=== PATIENT | female | born 2000 | race Caucasian/White ===

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

== ENCOUNTER 2021-08-29 08:33 | Day surgery (SDC) | payer BC ==
[2021-08-24 15:36] VITALS: BMI 18.8
--- NOTE | 2021-08-27 12:46 | P.HPOR ---
History of Present Illness H&P Date: 08/27/21 Chief Complaint: Left hand soft tissue mass Subjective: This is a 20 year old female that presents today for initial evaluation regarding a left hand dorsal soft tissue mass that has been present for 3-4 months that is causing daily pain and discomfort. She has a recent history of a left hand dorsal soft tissue mass excision performed by another surgeon in January of 2021 that was just located just radial to her current soft tissue mass, she is unsure as to whether this mass is recurrent or if this is a new mass that has formed. She also complaints of persistent paresthesias and numbness distal to her incision mainly overlying the dorsal aspects of the index and middle finger. She denies any recent injury and has no other complaints at this time. 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 Physical Examination: LUE: AIN/PIN/Radial/Ulnar/Median motor intact. Radial/Ulnar/Median SILT. 2+/4 Radial/Ulnar pulses palpated. Soft tissue mass prominent over base of middle finger metacarpal underlying middle finger EDC tendon. Transverse incision well healed over dorsum of hand. 2pt discrimination greater than 8mm distal to old incision overlying proximal aspect of index and middle finger. Wrist flexion extension 80/80 with pain over mass with maximal flexion. Imaging: X-Rays of the left hand demonstrate no acute osseus abnormality Impression: 1.) Left hand dorsal soft tissue mass. Plan: Diagnosis and treatment options were discussed with the patient. At this point she states the mass is causing her daily discomfort and pain and she is interested in having it removed. We discussed that her paresthesias distal to her incision may be permanent but she states her main complaint is the pain surrounding the mass. Risks of surgery including recurrence, bleeding, infection, damage to surrounding tissue and need for further surgery were discussed and she was understanding. I discussed that her previous incision will likely be extended and exploration of any nerve damage can be done at the time of surgery and that if there is any nerve amendable to repair it can be done at the time of surgery and she was agreeable with this. Preoperative labs are ordered and we will tentatively schedule the patient for left hand dorsal soft tissue mass excision with possible nerve repair. I anticipate 1-2 weeks off of work may be needed post operatively but if she desires to return to work sooner she may. -Uri Pink DO Orthopedic Hand/Upper Extremity Surgeon Past Medical History Past Medical History: Asthma History of Any Multi-Drug Resistant Organisms: None Reported Past Surgical History: No Surgical Hx Reported Additional Past Surgical History / Comment(s): Left hand surgery. Past Anesthesia/Blood Transfusion Reactions: Motion Sickness, Postoperative Nausea & Vomiting (PONV) Past Psychological History: ADD/ADHD, Anxiety Smoking Status: Never smoker Past Alcohol Use History: None Reported Past Drug Use History: None Reported - Past Family History Mother Family Medical History: Cancer Additional Family Medical History / Comment(s): Cervical cancer. Medications and Allergies Home Medications Medication Instructions Recorded Confirmed Type Biotin 10,000 mcg PO DAILY 08/24/21 08/24/21 History Control Pill (? Name) 1 tab PO QAM 08/24/21 08/24/21 History Loratadine 10 mg PO DAILY 08/24/21 08/24/21 History Multivitamins, Thera [Multivitamin 1 tab PO DAILY 08/24/21 08/24/21 History (formulary)] Allergies Allergy/AdvReac Type Severity Reaction Status Date / Time iodine Allergy Rash/Hives Verified 08/24/21 15:37 Physical Examination Osteopathic Statement: *. No significant issues noted on an osteopathic structural exam other than those noted in the History and Physical/Consult.
[~2021-08-29 08:33] MED LIST: HYDROmorphone 0.5 MG/0.5 ML SYRINGE IVP PRN; LACTATED RINGERS 1,000 ML IV SCH; LIDOCAINE 1% (10MG/ML) FOR IV START INTRADERMA PRN; ONDANSETRON 4 MG/2 ML VIAL IVP PRN
[2021-08-29] MEDS ORDERED: DEXAMETHASONE SOD PHOSPHATE 4 MG/ML 1 ML VIAL IVP ONE (09:33)
[2021-08-29] MEDS ORDERED: SCOPOLAMINE 1.5MG/72HR PATCH TRANSDERM ONE (09:39)
[2021-08-29] MEDS ORDERED: PROPOFOL 10 MG/ML 20 ML VIAL IV ONE (09:52)
[2021-08-29] MEDS ORDERED: ceFAZolin 1,000 MG VIAL ONE (09:52)
[2021-08-29] MEDS ORDERED: SODIUM CHLORIDE 0.9% 100 ML BAG ONE (09:52)
[2021-08-29] MEDS ORDERED: MIDAZOLAM 2 MG/2 ML VIAL ONE (09:52)
[2021-08-29] MEDS ORDERED: LIDOCAINE 1% INJ 10MG/ML (20 ML MDV) ONE (09:52)
[2021-08-29] MEDS ORDERED: fentaNYL (PF) 50 MCG/ML 2 ML AMP ONE (09:52)
[2021-08-29] MEDS ORDERED: diphenhydrAMINE 50 MG/ML 1 ML VIAL ONE (09:52)
[2021-08-29] MEDS ORDERED: BUPIVACAINE (PF) 0.25% 30 ML VIAL SQ ONE ×2 (10:00→10:33)
[2021-08-29 11:06] VITALS: TEMP 97.9
[2021-08-29] MEDS ORDERED: KETOROLAC 15 MG/ML 1 ML VIAL ONE (11:35)
[2021-08-29] MEDS ORDERED: KETOROLAC 15 MG/ML 1 ML VIAL IVP ONE (11:40)
[2021-08-29] MEDS ORDERED: HYDROmorphone 0.5 MG/0.5 ML SYRINGE IVP ONE (11:42)
[2021-08-29] MEDS ORDERED: LACTATED RINGERS 1,000 ML IV ONE (11:56)
--- NOTE | 2021-08-29 12:22 | P.OP ---
Date of Procedure: 08/29/21 Preoperative Diagnosis: Left hand dorsal soft tissue mass Postoperative Diagnosis: Same Procedure(s) Performed: Left hand dorsal mass excision, deep, sub-fascial 3.5cm Anesthesia: DHEERAJA Surgeon: Uri Pink Estimated Blood Loss (ml): 0 Pathology: other (Left wrist soft tissue mass, dorsal.) Condition: stable Disposition: PACU Operative Findings: This is a 21 year old female with a history of a painful dorsal hand/wrist mass that has failed conservative treatment. She presents today for left hand mass excision. Risks and benefits of surgery were discussed with the patient including bleeding, damage to surrounding tissue, infection, recurrence, need for further surgery as well as risks of anesthesia including pulmonary embolism and even and the patient wished to proceed with surgical intervention. The patient was seen in the pre-operative area by myself. Consent and H&P were completed and updated. The correct extremity was marked in the pre-operative area by myself and all other questions were answered. Operative Narrative: The patient was brought to the operating room by the department of anesthesia. They remained on the portable stretcher and a rolling hand table was brought to the side of the operative extremity. Pre-operative time out was performed indicating the correct patient, procedure and laterality. All in the room agreed. Pre-operative antibiotics were given prior to skin incision. The patient was then drifted off to sleep by the department of anesthesia. A nonsterile tourniquet was then applied to the operative extremity and the left upper extremity was then prepped and draped in normal sterile fashion. The operative extremity was elevated to gravity and the tourniquet was inflated to 250mmHg. A transverse incision was made centralized over the palpable soft tissue mass. Blunt dissection was taken through subcutaneous tissues taking care to protect dorsal sensory nerve branches . Dissection was carried deep to the extensor tenosynovium and the mass was then identified located deep to the 4th dorsal extensor compartment. The mass appeared to be a 3.5cm multilobulated and had a clear, gelatinous make up. Careful blunt dissection was taken to free the mass from surrounding deep tissue. The stalk of the mass was identified and it appeared to be communicating and originating from the ring finger CMC joint. The mass was sharply excised at its base and sent for pathology. Rongeur was used to remove the mass remnants from the stalk base and bipolar cautery was used at the origin of the mass. The wound was then irrigated. Skin closure was performed with 4-0 Monocryl suture followed by steri strips. A sterile dressing was then applied consisting of 4x4s, cast padding and elsa wrap. The tourniquet was let down and the hand had immediate normal perfusion. The patient was then woken by the department of anesthesia and transferred to PACU in stable condition. Uri Pink D.O. Orthopedic Hand/Upper Extremity Surgeon
[2021-08-29 13:13] VITALS: BP 108/65; PULSE 81; RESP 16
== END 2021-08-29 13:14 | disposition home or self-care (01) ==
LOC: OR 08:33
PROVIDERS: ATTEND Orthopaedic Surgery Hand Surgery
DX: M67.442 Ganglion, left hand (principal); J45.909 Unspecified asthma, uncomplicated; Z98.890 Other specified postprocedural states; F41.9 Anxiety disorder, unspecified; F90.9 Attention-deficit hyperactivity disorder, unspecified type; Z80.49 Family history of malignant neoplasm of other genital organs; Z79.3 Long term (current) use of hormonal contraceptives; Z79.899 Other long term (current) drug therapy; Z91.048 Other nonmedicinal substance allergy status
CPT/HCPCS: 81025; 88304; 26160; J2250; J1200; J1100; J2405; J0690; J2001; J3010; J1885; J2704; J1170; 88305

== ENCOUNTER 2021-12-13 10:12 | Emergency (ER) | payer BC, OTHER ==
[2021-12-13] MEDS ORDERED: ONDANSETRON 4 MG/2 ML VIAL IVP STA (11:00)
[2021-12-13] MEDS ORDERED: MORPHINE SULFATE 2 MG/ML SYRINGE IVP STA ×2 (11:00→14:00)
[2021-12-13] MEDS ORDERED: SODIUM CHLORIDE 0.9% 500 ML 500 ML IV ONE (11:00)
--- NOTE | 2021-12-13 11:05 | ED ---
General Adult HPI - General Chief complaint: Vaginal Bleeding Stated complaint: abd pain, vaginal bleeding Time Seen by Provider: 12/13/21 10:21 Source: patient Mode of arrival: ambulatory Limitations: no limitations - History of Present Illness Initial comments: 21 year-old female patient with history of endometriosis presents to the emergency department for evaluation of pelvic pain with abdominal bloating. She has also been having dark brown vaginal discharge. Symptoms started 4 days ago and have been worsening. Reports lower abdominal cramping with radiation through to her back. She has been on control for the last 6 months, last 4 perio ds have been regular. LMP was 11/21/21. She has had some constipation. Denies any hematuria, dysuria, urinary frequency, urinary urgency. Denies any fever or chills. Has not taken any tests. Denies concerns for sexually transmitted infections. She was advised to come in by her AUTHOR'S AGENT Dr. Lucas after a phone consultation. - Related Data Home Medications Medication Instructions Recorded Confirmed Loratadine 10 mg PO DAILY 08/24/21 12/13/21 Multivitamins, Thera [Multivitamin 1 tab PO DAILY 08/24/21 12/13/21 (formulary)] Minocycline [Minocin] 50 mg PO DAILY 12/13/21 12/13/21 Norgestimate-Ethinyl Estradiol 1 tab PO DAILY 12/13/21 12/13/21 [Sfb-Mi-[id number] Tablet] Allergies Allergy/AdvReac Type Severity Reaction Status Date / Time iodine Allergy Rash/Hives Verified 12/13/21 10:53 Review of Systems ROS Statement: Those systems with pertinent positive or pertinent negative responses have been documented in the HPI. ROS Other: All systems not noted in ROS Statement are negative. Past Medical History Past Medical History: Asthma Additional Past Medical History / Comment(s): endometriosis, ovarian cysts. History of Any Multi-Drug Resistant Organisms: None Reported Past Surgical History: No Surgical Hx Reported Additional Past Surgical History / Comment(s): Left hand surgery. Past Anesthesia/Blood Transfusion Reactions: Motion Sickness, Postoperative N ausea & Vomiting (PONV) Past Psychological History: ADD/ADHD, Anxiety Smoking Status: Never smoker Past Alcohol Use History: None Reported Past Drug Use History: None Reported - Past Family History Mother Family Medical History: Cancer Additional Family Medical History / Comment(s): Cervical cancer. General Exam Limitations: no limitations General appearance: alert, in no apparent distress, other (This is a well- developed, well-nourished adult female in no acute distress.) ENT exam: Present: normal exam, normal oropharynx, mucous membranes moist Respiratory exam: Present: normal lung sounds bilaterally. Absent: respiratory distress, wheezes, rales, rhonchi, stridor Cardiovascular Exam: Present: regular rate, normal rhythm, normal heart sounds. Absent: systolic murmur, diastolic murmur, rubs, gallop, clicks GI/Abdominal exam: Present: soft, tenderness (Lower abdominal), normal bowel sounds. Absent: distended, guarding, rebound, rigid Neurological exam: Present: alert, oriented X3, CN II-XII intact Psychiatric exam: Present: normal affect, normal mood Skin exam: Present: warm, dry, intact, normal color. Absent: rash Course Vital Signs 12/13/21 12/13/21 12/13/21 10:14 11:50 14:36 Temperature 98.4 F 98.2 F Pulse Rate 111 H 104 H 78 Respiratory 18 18 16 Rate Blood Pressure 142/78 110/79 128/70 O2 Sat by Pulse 100 100 98 Oximetry Medical Decision Making - Medical Decision Making 21-year-old female patient presented to the emergency department today for evaluation of pelvic pain for the last several days. Physical examination did r eveal tenderness over the lower abdomen. Labs reviewed and are unremarkable. She is not . Pelvic ultrasound was obtained and did show good arterial flow to the left ovary but no certain venous flow. I did discuss this finding with Dr. Lucas who reports low risk for torsion due to no presence of a causative lesion such as cyst. KUB was obtained and showed nonspecific abdomen no review the images does reveal some fecal retention in the rectum. She'll be given a bottle of magnesium citrate. She'll be discharged follow up with her [employer]S AGENT and her primary care physician for recheck in 1-2 days. Return parameters were discussed in detail. She verbalizes understanding and agrees with this plan. My attending is Dr. Brown. - Lab Data Result diagrams: 12/13/21 11:50 12/13/21 11:50 Lab Results 12/13/21 12/13/21 12/13/21 Range/Units 10:54 10:54 11:50 WBC 3.9 (3.8-10.6) k/uL RBC 4.24 (3.80-5.40) m/uL Hgb 13.5 (11.4-16.0) gm/dL Hct 39.0 (34.0-46.0) % MCV 92.0 (80.0-100.0) fL MCH 31.9 (25.0-35.0) pg MCHC 34.7 (31.0-37.0) g/dL RDW 12.8 (11.5-15.5) % Plt Count 176 (150-450) k/uL MPV 7.7 Neutrophils % 57 % Lymphocytes % 33 % Monocytes % 6 % Eosinophils % 2 % Basophils % 0 % Neutrophils # 2.2 (1.3-7.7) k/uL Lymphocytes # 1.3 (1.0-4.8) k/uL Monocytes # 0.2 (0-1.0) k/uL Eosinophils # 0.1 (0-0.7) k/uL Basophils # 0.0 (0-0.2) k/uL Sodium (137-145) mmol/L Potassium (3.5-5.1) mmol/L Chloride (98-107) mmol/L Carbon Dioxide (22-30) mmol/L Anion Gap mmol/L BUN (7-17) mg/dL Creatinine (0.52-1.04) mg/dL Est GFR (CKD-EPI)AfAm (>60 ml/min/1.73 sqM) Est GFR (CKD-EPI)NonAf (>60 ml/min/1.73 sqM) Glucose (74-99) mg/dL Plasma Lactic Acid Marciano (0.7-2.0) mmol/L Calcium (8.4-10.2) mg/dL Total Bilirubin (0.2-1.3) mg/dL AST (14-36) U/L ALT (4-34) U/L Alkaline Phosphatase (38-126) U/L Total Protein (6.3-8.2) g/dL Albumin (3.5-5.0) g/dL Urine Color Yellow Urine Appearance Clear (Clear) Urine pH 6.5 (5.0-8.0) Ur Specific [place] 1.009 (1.001-1.035) Urine Protein Negative (Negative) Urine Glucose (UA) Negative (Negative) Urine Ketones Negative (Negative) Urine Blood Small H (Negative) Urine Nitrite Negative (Negative) Urine Bilirubin Negative (Negative) Urine Urobilinogen <2.0 (<2.0) mg/dL Ur Leukocyte Esterase Negative (Negative) Urine RBC 1 (0-5) /hpf Urine WBC 1 (0-5) /hpf Ur Squamous Epith Cells 1 (0-4) /hpf Urine Bacteria Rare H (None) /hpf Urine HCG, Qual Not Detected (Not Detectd) 12/13/21 12/13/21 Range/Units 11:50 11:50 WBC (3.8-10.6) k/uL RBC (3.80-5.40) m/uL Hgb (11.4-16.0) gm/dL Hct (34.0-46.0) % MCV (80.0-100.0) fL MCH (25.0-35.0) pg MCHC (31.0-37.0) g/dL RDW (11.5-15.5) % Plt Count (150-450) k/uL MPV Neutrophils % % Lymphocytes % % Monocytes % % Eosinophils % % Basophils % % Neutrophils # (1.3-7.7) k/uL Lymphocytes # (1.0-4.8) k/uL Monocytes # (0-1.0) k/uL Eosinophils # (0-0.7) k/uL Basophils # (0-0.2) k/uL Sodium 138 (137-145) mmol/L Potassium 4.3 (3.5-5.1) mmol/L Chloride 107 (98-107) mmol/L Carbon Dioxide 24 (22-30) mmol/L Anion Gap 7 mmol/L BUN 9 (7-17) mg/dL Creatinine 0.69 (0.52-1.04) mg/dL Est GFR (CKD-EPI)AfAm >90 (>60 ml/min/1.73 sqM) Est GFR (CKD-EPI)NonAf >90 (>60 ml/min/1.73 sqM) Glucose 90 (74-99) mg/dL Plasma Lactic Acid Marciano 0.5 L (0.7-2.0) mmol/L Calcium 9.7 (8.4-10.2) mg/dL Total Bilirubin 0.8 (0.2-1.3) mg/dL AST 24 (14-36) U/L ALT 13 (4-34) U/L Alkaline Phosphatase 43 (38-126) U/L Total Protein 7.5 (6.3-8.2) g/dL Albumin 4.5 (3.5-5.0) g/dL Urine Color Urine Appearance (Clear) Urine pH (5.0-8.0) Ur Specific [place] (1.001-1.035) Urine Protein (Negative) Urine Glucose (UA) (Negative) Urine Ketones (Negative) Urine Blood (Negative) Urine Nitrite (Negative) Urine Bilirubin (Negative) Urine Urobilinogen (<2.0) mg/dL Ur Leukocyte Esterase (Negative) Urine RBC (0-5) /hpf Urine WBC (0-5) /hpf Ur Squamous Epith Cells (0-4) /hpf Urine Bacteria (None) /hpf Urine HCG, Qual (Not Detectd) - Radiology Data Radiology results: report reviewed, image reviewed Ultrasound of the pelvis is obtained. Report was reviewed in its entirety. Impression by Dr. Joyce shows endometrial stripe measures within normal limits. Left ovary demonstrates arterial flow however he still cannot be seen with certainty and that should be correlated clinically. Small amount of fluid in the endocervical canal. Disposition Clinical Impression: Abdominal pain Disposition: HOME SELF-CARE Condition: Good Instructions (If sedation given, give patient instructions): Abdominal Pain (ED) Additional Instructions: Drink bottled of magnesium citrate upon arrival home. Increase fluids. Follow- up with your primary care physician [employer] for further evaluation. Return for any new, worsening, or concerning symptoms. Is patient prescribed a controlled substance at d/c from ED?: No Referrals: Anahi Melendez MD [Primary Care Provider] - 1-2 days Time of Disposition: 14:03
[2021-12-13 12:26] LABS: Appearance,Urine Clear (Clear); Bacteria,Urine Rare /hpf; Bilirubin,Urine Negative (Negative); Blood,Urine Small (Negative); Color,Urine Yellow; Glucose,Urine (UA) Negative (Negative); Ketones,Urine Negative (Negative); Leukocyte Esterase,Urine Negative (Negative); Nitrite,Urine Negative (Negative); PH, Urine 6.5 (5.0-8.0); Protein,Urine Negative (Negative); RBC,Urine 1 /hpf (0-5); Specific Gravity,Urine 1.009 (1.001-1.035); Squamous Epithelial Cell,Urine 1 /hpf (0-4); Urobilinogen,Urine <2.0 mg/dL (<2.0); WBC,Urine 1 /hpf (0-5)
[2021-12-13 12:31] LABS: ALT 13 U/L (4-34); AST 24 U/L (14-36); African American GFR (CKD) >90 (>60 ml/min/1.73 sqM); Albumin 4.5 g/dL (3.5-5.0); Alkaline Phosphatase 43 U/L (38-126); Anion Gap 7 mmol/L; Blood Urea Nitrogen 9 mg/dL (7-17); Calcium 9.7 mg/dL (8.4-10.2); Carbon Dioxide 24 mmol/L (22-30); Chloride 107 mmol/L (98-107); Glucose 90 mg/dL (74-99); Non-African American GFR(CKD) >90 (>60 ml/min/1.73 sqM); Potassium 4.3 mmol/L (3.5-5.1); Sodium 138 mmol/L (137-145); Total Bilirubin 0.8 mg/dL (0.2-1.3); Total Protein 7.5 g/dL (6.3-8.2)
--- NOTE | 2021-12-13 12:46 | US ---
EXAMINATION TYPE: US transvaginal DATE OF EXAM: 12/13/2021 COMPARISON: NONE CLINICAL HISTORY: Pelvic pain; vaginal bleeding. Pelvic pain TECHNIQUE: Transvaginal ER exam Date of LMP: 11/21/2021 EXAM MEASUREMENTS: Uterus: 6.8 x 3.2 x 4.3 cm Endometrial Stripe: 0.6 cm Right Ovary: 3.2 x 1.5 x 2.1 cm Left Ovary: 2.6 x 1.7 x 1.9 cm 1. Uterus: anteverted 2. Endometrium: appears wnl 3. Right Ovary: multiple follicles 4. Left Ovary: multiple follicles Spectral, color and waveform doppler imaging shows good arterial flow within the ovaries and venous flow within the right ovary; unable to obtain venous flow within the left ovary. 5. Bilateral Adnexa: wnl 6. Posterior cul-de-sac: wnl IMPRESSION: 1. The endometrial stripe measures within normal limits. Left ovary demonstrates arterial flow howeve r venous flow cannot be seen with certainty and this should be correlated clinically. 2. Small amount of fluid in the endocervical canal or
[2021-12-13 12:47] LABS: Basophils % (A) 0 %; Eosinophils # (A) 0.1 k/uL (0-0.7); Eosinophils % (A) 2 %; HGB 13.5 gm/dL (11.4-16.0); Lymphocytes # (A) 1.3 k/uL (1.0-4.8); Lymphocytes % (A) 33 %; MCH 31.9 pg (25.0-35.0); MCHC 34.7 g/dL (31.0-37.0); Mean Platelet Volume 7.7; Monocytes # (A) 0.2 k/uL (0-1.0); Monocytes % (A) 6 %; Neutrophils # (A) 2.2 k/uL (1.3-7.7); Neutrophils % (A) 57 %; Platelet Count 176 k/uL (150-450); RBC 4.24 m/uL (3.80-5.40); RDW 12.8 % (11.5-15.5); WBC 3.9 k/uL (3.8-10.6)
[2021-12-13] MEDS ORDERED: MAGNESIUM CITRATE 296 ML BOTTLE PO ONE (13:59)
[2021-12-13] MEDS ORDERED: KETOROLAC 15 MG/ML 1 ML VIAL IVP STA (14:00)
--- NOTE | 2021-12-13 14:05 | XR ---
EXAMINATION TYPE: XR KUB DATE OF EXAM: 12/13/2021 COMPARISON: NONE HISTORY: Pain TECHNIQUE: One view abdominal series FINDINGS: The osseous structures are intact. The bowel gas pattern is nonspecific. Lung bases are clear. IMPRESSION: 1. Nonspecific abdomen.
[2021-12-13 14:37] VITALS: BP 128/70; PULSE 78; RESP 16; TEMP 98.2
== END 2021-12-13 14:36 | disposition home or self-care (01) ==
LOC: EC 10:12
DX: R10.9 Unspecified abdominal pain (principal); J45.909 Unspecified asthma, uncomplicated; Z91.041 Radiographic dye allergy status
CPT/HCPCS: 99284; 96374; 96375; 96376; 36415; 80053; 83605; 85025; 81001; 81025; 74018; 93975; 76830; J2405; J2270; J1885

== ENCOUNTER 2024-03-25 22:36 | Emergency (ER) | payer BC, OTHER ==
[2024-03-25 23:07] LABS: Appearance,Urine Turbid (Clear); Bacteria,Urine Many /hpf; Bilirubin,Urine 2+ (Negative); Blood,Urine Large (Negative); Color,Urine Dark Brown; Glucose,Urine (UA) Negative (Negative); Ketones,Urine Negative (Negative); Leukocyte Esterase,Urine Large (Negative); Nitrite,Urine Positive (Negative); PH, Urine 7.5 (5.0-8.0); Protein,Urine 2+ (Negative); RBC,Urine >182 /hpf (0-5); Squamous Epithelial Cell,Urine 5 /hpf (0-4); WBC,Urine >182 /hpf (0-5)
[2024-03-25 23:20] VITALS: BP 149/94; PULSE 83; RESP 16; TEMP 97.8
--- NOTE | 2024-03-25 23:37 | ED ---
Female Urogenital HPI - General Chief complaint: Urogenital Stated complaint: UTI blood in urine Time Seen by Provider: 03/25/24 23:17 Source: patient Mode of arrival: ambulatory Limitations: no limitations - History of Present Illness Initial comments: 23-year-old female presenting with chief complaint of dysuria. Patient has had dysuria urgency and frequency for the last 3 days. She was seen at her PCPs office today and had a UA ran which she states was negative for UTI. This evening she had worsening discomfort and started having hematuria. She is having no flank pain. No fevers. No vomiting. Last Menstrual Period: 03/21/24 - Related Data Home Medications Medication Instructions Recorded Confirmed Loratadine 10 mg PO DAILY 08/24/21 12/13/21 Multivitamins, Thera [Multivitamin 1 tab PO DAILY 08/24/21 12/13/21 (formulary)] Minocycline [Minocin] 50 mg PO DAILY 12/13/21 12/13/21 norgestimate-ethinyl estradioL 1 tab PO DAILY 12/13/21 12/13/21 [Glg-Eq-Qigmmdya Tablet] Previous Rx's Medication Instructions Recorded Phenazopyridine [Pyridium] 100 mg PO TID PRN #9 tablet 03/25/24 Sulfamethox-Tmp 800-160Mg [Bactrim 1 tab PO Q12HR 7 Days #14 tab 03/25/24 DS 800-160 mg] Allergies Allergy/AdvReac Type Severity Reaction Status Date / Time iodine Allergy Rash/Hives Verified 03/25/24 22:40 prednisone Allergy Rash/Hives Verified 03/25/24 22:40 Review of Systems ROS Statement: Those systems with pertinent positive or pertinent negative responses have been documented in the HPI. ROS Other: All systems not noted in ROS Statement are negative. Past Medical History Past Medical History: Asthma Additional Past Medical History / Comment(s): endometriosis, ovarian cysts. History of Any Multi-Drug Resistant Organisms: None Reported Past Surgical History: No Surgical Hx Reported Additional Past Surgical History / Comment(s): Left hand surgery. Past Anesthesia/Blood Transfusion Reactions: Motion Sickness, Postoperative Nausea & Vomiting (PONV) Past Psychological History: ADD/ADHD, Anxiety Smoking Status: Never smoker Past Alcohol Use History: None Reported Past Drug Use History: None Reported - Past Family History Mother Family Medical History: Cancer Additional Family Medical History / Comment(s): Cervical cancer. General Exam Limitations: no limitations General appearance: alert, in no apparent distress Head exam: Present: atraumatic, normocephalic Eye exam: Present: normal appearance, EOMI Neck exam: Present: normal inspection. Absent: meningismus Respiratory exam: Absent: respiratory distress Cardiovascular Exam: Present: regular rate Neurological exam: Present: alert, oriented X3 Psychiatric exam: Present: normal affect, normal mood Skin exam: Present: normal color Course Vital Signs 03/25/24 22:37 Temperature 97.8 F Pulse Rate 83 Respiratory 16 Rate Blood Pressure 149/94 O2 Sat by Pulse 100 Oximetry Medical Decision Making - Medical Decision Making Was pt. sent in by a medical professional or institution (, [facility], [employer], urgent care, hospital, or custodial...) When possible be specific @ -No Did you speak to anyone other than the patient for history (EMS, parent, family, police, friend...)? What history was obtained from this source @ -No Did you review nursing and triage notes (agree or disagree)? Why? @ -I reviewed and agree with nursing and triage notes Were old charts reviewed (outside hosp., previous admission, EMS record, old EKG, old radiological studies, urgent care reports/EKG's, custodial records)? Report findings @ -No old charts were reviewed Differential Diagnosis (chest pain, altered mental status, abdominal pain women, abdominal pain men, vaginal bleeding, weakness, fever, dyspnea, syncope, headache, dizziness, GI bleed, back pain, seizure, CVA, palpatations, mental health, musculoskeletal)? @ -Differential includes UTI, pyelonephritis, kidney stone, this is not an all- inclusive list EKG interpreted by me (3pts min.). @ -As above X-rays interpreted by me (1pt min.). @ -None done CT interpreted by me (1pt min.). @ -None done U/S interpreted by me (1pt. min.). @ -None done What testing was considered but not performed or refused? (CT, X-rays, U/S, labs)? Why? @ -None What meds were considered but not given or refused? Why? @ -None Did you discuss the management of the patient with other professionals (professionals i.e. Dr., PA, [employer], lab, RT, psych nurse, high school social studies teacher, key account coordinator, teacher, security public safety officer, immigration case worker)? Give summary @ -No Was smoking cessation discussed for >3mins.? @ -No Was critical care preformed (if so, how long)? @ -No Were there social determinants of health that impacted care today? How? (Homelessness, low income, unemployed, alcoholism, drug addiction, transportation, low edu. Level, literacy, decrease access to med. care, [facility], rehab)? @ -No Was there de-escalation of care discussed even if they declined (Discuss DNR or withdrawal of care, Hospice)? DNR status @ -No What co-morbidities impacted this encounter? (DM, HTN, Smoking, COPD, CAD, Cancer, CVA, ARF, Chemo, Hep., AIDS, mental health diagnosis, sleep apnea, morbid obesity)? @ -None Was patient admitted / discharged? Hospital course, mention meds given and route, prescriptions, significant lab abnormalities, going to OR and other pertinent info. @ -23-year-old female presenting with chief complaint of UTI-like symptoms. Urine is positive for UTI with large leukocytes and large blood and positive nitrites. Negative hCG. Patient is having no flank pain or fevers. Treated with Bactrim. Provided with Pyridium. Discharged home. Follow-up with PCP. Report back to ER with any new or worsening symptoms. Discussed return parameters and answered all questions. Patient conveyed verbal understanding and agreed to the plan. I discussed this case in detail with my attending Dr. Mendoza Undiagnosed new problem with uncertain prognosis? @ -No Drug Therapy requiring intensive monitoring for toxicity (Heparin, Nitro, Insulin, Cardizem)? @ -No Were any procedures done? @ -No Diagnosis/symptom? @ -UTI Acute, or Chronic, or Acute on Chronic? @ -Acute Uncomplicated (without systemic symptoms) or Complicated (systemic symptoms)? @ -Uncomplicated Side effects of treatment? @ -No Exacerbation, Progression, or Severe Exacerbation? @ -No Poses a threat to life or bodily function? How? (Chest pain, USA, CT, pneumonia, PE, COPD, DKA, ARF, appy, cholecystitis, CVA, Diverticulitis, Homicidal, Suicidal, threat to staff... and all critical care pts) @ -Unlikely - Lab Data Lab Results 05/30/24 05/30/24 Range/Units 22:47 22:47 Urine Color Dark Brown Urine Appearance Turbid H (Clear) Urine pH 7.5 (5.0-8.0) Ur Specific [place] 1.020 (1.001-1.035) Urine Protein 2+ H (Negative) Urine Glucose (UA) Negative (Negative) Urine Ketones Negative (Negative) Urine Blood Large H (Negative) Urine Nitrite Positive H (Negative) Urine Bilirubin 2+ H (Negative) Urine Urobilinogen 8.0 (<2.0) mg/dL Ur Leukocyte Esterase Large H (Negative) Urine RBC >182 H (0-5) /hpf Urine WBC >182 H (0-5) /hpf Urine WBC Clumps Many H (None) /hpf Ur Squamous Epith Cells 5 H (0-4) /hpf Urine Bacteria Many H (None) /hpf Urine HCG, Qual Not Detected (Not Detectd) Disposition Clinical Impression: UTI (urinary tract infection) Disposition: HOME SELF-CARE Condition: Good Instructions (If sedation given, give patient instructions): Urinary Tract Infection in Women (ED) Additional Instructions: Follow-up with your PCP. Report back to ER with any new or worsening symptoms. Prescriptions: Sulfamethox-Tmp 800-160Mg [Bactrim DS 800-160 mg] 1 tab PO Q12HR 7 Days #14 tab Phenazopyridine [Pyridium] 100 mg PO TID PRN #9 tablet PRN Reason: Pain/Discomfort Is patient prescribed a controlled substance at d/c from ED?: No Referrals: Cecily Suarez DO [Primary Care Provider] - 1-2 days Time of Disposition: 23:37
[2024-03-25] MEDS: PHENAZOPYRIDINE 100 MG TAB PO STA (23:43)
[2024-03-25] MEDS: SULFAMETHOX-TMP 800-160MG 1 EACH TAB PO STA (23:43)
== END 2024-03-25 23:53 | disposition home or self-care (01) ==
LOC: EC 22:36
DX: N39.0 Urinary tract infection, site not specified (principal); Z91.041 Radiographic dye allergy status; Z88.8 Allergy status to other drugs, medicaments and biological substances
CPT/HCPCS: 81001; 81025; 99283

== ENCOUNTER → 2025-01-18 | Outpatient (CLI) | payer OTHER ==
--- NOTE | 2025-01-18 08:11 | US ---
EXAMINATION TYPE: US abdomen complete DATE OF EXAM: 01/18/2025 COMPARISON: NONE CLINICAL INDICATION: Female, 24 years old with history of R10.9 UNSPECIFIED ABDOMINAL PAIN; Generaliz ed ABD pain, more on left side x years TECHNIQUE: Grayscale and color Doppler imaging of the abdomen was performed. FINDINGS: EXAM MEASUREMENTS: Liver Length: 13.6 cm Gallbladder Wall: 0.2 cm CBD: 0.3 cm, color Doppler imaging was utilized to isolate the common bile duct for measurement. Spleen: 12.1 cm Right Kidney: 10.8 x 4.5 x 5.5 cm Left Kidney: 11.6 x 5.5 x 4.8 cm DISABILITY SPECIALIST NOTES: Patient states she is 6 months , uterus visualized at distal portion of ao rta Pancreas: wnl Liver: wnl, no dilated ducts, masses or cysts. Gallbladder: wnl Evidence for sonographic Donohue's sign: No CBD: wnl Spleen: wnl Right Kidney: wnl, No hydronephrosis, calculi or masses seen, lower pole gassed out Left Kidney: wnl, No hydronephrosis, calculi or masses seen Upper IVC: wnl Abd Aorta: wnl The liver is homogenous. The intrahepatic portion of the IVC and proximal abdominal aorta are within normal limits. There is no evidence of cholelithiasis. Common bile duct is unremarkable. The visu alized portions of the pancreas are homogenous. The spleen is unremarkable. Kidneys are symmetric a nd free of hydronephrosis. No renal lesions are seen. Partial visualization of the uterus. IMPRESSION: No ultrasound evidence for acute abdominal process. [facility], , 01/18/2025 8:08 AM
== END | disposition home or self-care (01) ==
LOC: RADUSWWP 07:40
PROVIDERS: ATTEND Internal Medicine Geriatric Medicine
DX: R10.9 Unspecified abdominal pain (principal)
CPT/HCPCS: 76700

== ENCOUNTER 2025-02-03 06:29 | Outpatient (CLI) | payer OTHER ==
[2025-02-03] MEDS: LACTATED RINGERS 1,000 ML IV ONE (08:11)
[2025-02-03 08:16] LABS: Appearance,Urine Clear (Clear); Bacteria,Urine Rare /hpf; Bilirubin,Urine Negative (Negative); Blood,Urine Negative (Negative); Color,Urine Colorless; Glucose,Urine (UA) Negative (Negative); Ketones,Urine Negative (Negative); Leukocyte Esterase,Urine Small (Negative); Nitrite,Urine Negative (Negative); PH, Urine 6.5 (5.0-8.0); Protein,Urine Negative (Negative); Specific Gravity,Urine 1.012 (1.001-1.035); Squamous Epithelial Cell,Urine 1 /hpf (0-4); Urobilinogen,Urine <2.0 mg/dL (<2.0); WBC,Urine 7 /hpf (0-5)
[2025-02-03 08:17] LABS: Basophils # (A) 0.02 10*3/uL (0.00-0.10); Basophils % (A) 0.3 %; Eosinophils # (A) 0.09 10*3/uL (0.04-0.35); Eosinophils % (A) 1.3 %; HCT 32.7 % (37.2-46.3); HGB 11.8 g/dL (12.0-15.0); Lymphocytes # (A) 1.52 10*3/uL (0.90-5.00); Lymphocytes % (A) 21.4 %; MCH 34.3 pg (27.0-32.0); MCHC 36.1 g/dL (32.0-37.0); MCV 95.1 fL (80.0-97.0); Mean Platelet Volume 9.9 fL (9.5-12.2); Neutrophils # (A) 4.93 10*3/uL (1.80-7.70); Neutrophils % (A) 69.4 %; Platelet Count 152 10*3/uL (140-440); RBC 3.44 10*6/uL (4.10-5.20); RDW 12.3 % (11.5-14.5)
[2025-02-03] MEDS: TERBUTALINE 1 MG/ML VIAL SQ PRN (09:16)
[2025-02-03] MEDS: LACTATED RINGERS 1,000 ML IV SCH (09:21)
--- NOTE | 2025-02-03 10:18 | US ---
EXAMINATION TYPE: US OB limited DATE OF EXAM: 02/03/2025 COMPARISON: NONE CLINICAL INDICATION: Female, 24 years old with history of R/O placental issues contractions constan t pain; Pain TECHNIQUE:: Transabdominal (TA) FINDINGS: GESTATIONAL AGE / DATING Physician Established: (27 weeks/2 days) EDC: 05/03/2025 No growth performed on today?s study per ordering physician SURVEY PLACENTA: Posterior PREVIA: No Previa Ultrasound evidence of abruption? No (Tech?if abnormal transabdominally?image transvaginally to substantiate abnormality.) PRESENTATION: Vertex HEART RATE: 161 bpm. Second measurement 155 bpm. RHYTHM: Normal Dating was not performed on this exam. Images are discussed with the technologist. No discrete placental abnormality is identified. No suspi cious changes to suggest abruption. No history of bleeding from the patient. Previa or low-lying plac enta is not identified. IMPRESSION: 1. Single intrauterine gestation. Cardiac activity measures 161 bpm. 2. No discrete abnormality to account for patient's pain. [facility], , 02/03/2025 10:15 AM
[2025-02-03 20:28] VITALS: BP 122/68; PULSE 78; RESP 16; TEMP 98.4
== END 2025-02-03 11:05 | disposition home or self-care (01) ==
LOC: FBPOP 06:29
PROVIDERS: ATTEND Obstetrics & Gynecology
DX: O00.01 Abdominal pregnancy with intrauterine pregnancy (principal); Z3A.27 27 weeks gestation of pregnancy; Z91.041 Radiographic dye allergy status; Z88.8 Allergy status to other drugs, medicaments and biological substances
CPT/HCPCS: 99213; 96360; 96361; 96372; 82731; 85025; 81001; 87086; 76815; J3105

== ENCOUNTER 2025-02-04 17:29 | Outpatient (CLI) | payer OTHER ==
[2025-02-04] MEDS: NIFEdipine 10 MG CAP PO PRN (18:15)
[2025-02-04 19:24] VITALS: BP 119/69; PULSE 82; RESP 16; TEMP 97.8
--- NOTE | 2025-02-06 00:26 | P.MSEPDOC ---
Presenting Problems - Arrival Data Date of Arrival on Unit: 02/04/25 Time of Arrival on Unit: 17:29 Mode of Transport: Ambulatory - Complaint OB-Reason for Admission/Chief Complaint: Possible Onset of Labor Comment: Pt presents to triage c/o abdominal soreness and tightness and occasional cramping since 1400, approx [id number]. Pt was in triage yesterday and rec'd LR and terbutaline x 1. Medical History - Information : 1 Para: 0 - Gestational Age Gestational Age by MONROE (wks/days): 27 Weeks and 3 Days Review of Systems - Review of Systems Constitutional: No problems Breast: No problems ENT: No problems Cardiovascular: No problems Respiratory: No problems Gastrointestinal: No problems Genitourinary: No problems Musculoskeletal: No problems Neurological: No problems Skin: No problems Vital Signs - Temperature Temperature: 97.8 F Temperature Source: Temporal Artery Scan - Pulse Right Sitting Brachial Pulse Rate: 82 Pulse Assessment Method: Pulse Oximetry - Respirations Respiratory Rate: 16 Oxygen Delivery Method: Room Air O2 Sat by Pulse Oximetry: 100 - Blood Pressure Right Arm Sitting Blood Pressure: 119/69 Blood Pressure Mean: 85 Blood Pressure Source: Automatic Cuff Medical Screen Scoring - Cervical Exam Dilation (cm): 0 Effacement (%): 50 Membranes: Intact - Uterine Contractions Frequency From (mins): 1 Frequency To (mins): 50 Duration From (seconds): 40 Duration To (seconds): 60 Intensity: Mild Resting: Soft to palpation - Assessment - Baby A Baseline FHR: 140 Heart Rate - NICHD Category: Category I (Normal) NST: Reactive Physician Notification - Physician Notified Physician Notified Date: 02/04/25 Physician Notified Time: 18:06 Physician: Claudia Salcedo New Order Received: Yes - Notification Comment Comment: 1805: Spk c\Dr Salcedo, sandro pt of [facility], 27.3, in triage yesterday with cramping, was given 1L LR and terbutaline x 1, negative FFN and UA c\no growth at 18hrs. Pt started feeling cramping and back pain again today at 1400, 5/10 cramping, 4/10 back pain. Cat 1 FHT. Order recd to start Procardia labor protocol. 1899: Denzel hood\Dr. Salcedo, advsd pt feeling less cramping and back pain after 2 doses of procardia. Cat 1 FHT, SVE FT outter, inner closed, high, fetus not applied. Order rec'd for pt to call and make appt for early next week with Rikki. Nifedipine 10mg PO q6h being called into [facility]. Maternal Triage Index - Urgent/Priority 2 Urgent Priority 2: Yes Provider Notified: Claudia Salcedo Provider Notified Time: 18:06 Criteria Met for Priority 2: Contractions 27wk Disposition - Disposition OB Disposition: Discharge to home, Written follow up instructions reviewed Discharge Date: 02/04/25 Discharge Time: 19:15 I agree with the RN Medical Screening Exam: Yes Case reviewed; plan agreed upon as documented in EMR&OBIX.: Yes Diagnosis: RELATED CONDITIONS, UNSPECIFIED, SECOND TRIMESTER
== END 2025-02-04 19:15 | disposition home or self-care (01) ==
LOC: FBPOP 17:29
PROVIDERS: ATTEND Obstetrics & Gynecology Obstetrics
DX: O26.92 Pregnancy related conditions, unspecified, second trimester (principal); Z3A.27 27 weeks gestation of pregnancy; Z88.8 Allergy status to other drugs, medicaments and biological substances; Z91.041 Radiographic dye allergy status
CPT/HCPCS: 99213

== ENCOUNTER 2025-03-14 14:50 | Outpatient (CLI) | payer OTHER ==
[2025-03-14 15:56] VITALS: BP 121/72; PULSE 77; RESP 16; TEMP 97.3
--- NOTE | 2025-04-02 11:33 | P.MSEPDOC ---
Presenting Problems - Arrival Data Date of Arrival on Unit: 03/14/25 Time of Arrival on Unit: 14:50 Mode of Transport: Ambulatory - Complaint OB-Reason for Admission/Chief Complaint: Decreased Movement Medical History - Information : 1 Para: 0 Term: 0 : 0 Abortions: Spontaneous or Elective: 0 Number of Living Children: 0 - Gestational Age Gestational Age by MONROE (wks/days): 32 Weeks and 6 Days Review of Systems - Review of Systems Constitutional: No problems Breast: No problems ENT: No problems Cardiovascular: No problems Respiratory: No problems Gastrointestinal: No problems Genitourinary: No problems Musculoskeletal: No problems Neurological: No problems Skin: No problems Vital Signs - Temperature Temperature: 97.3 F Temperature Source: Temporal Artery Scan - Pulse Right Brachial Pulse Rate: 77 Pulse Assessment Method: Automatic Cuff - Respirations Respiratory Rate: 16 Oxygen Delivery Method: Room Air O2 Sat by Pulse Oximetry: 99 - Blood Pressure Right Arm Blood Pressure: 121/72 Blood Pressure Mean: 88 Blood Pressure Source: Automatic Cuff Medical Screen Scoring - Assessment - Baby A Baseline FHR: 125 Heart Rate - NICHD Category: Category I (Normal) NST: Reactive Physician Notification - Physician Notified Physician Notified Date: 03/14/25 Physician Notified Time: 15:37 Physician: Gregorio Brandt New Order Received: Yes - Notification Comment Comment: Dr. Brandt called and given report on pt. Pt c/o of decreased movement. VS WNL. CAT 1 FHTs. Reactive NST. movement noted per pt and visibly. Orders receive to d/c pt to home. Maternal Triage Index - Urgent/Priority 2 Urgent Priority 2: Yes Provider Notified: Gregorio Brandt Provider Notified Time: 15:37 Criteria Met for Priority 2: Pt c/o of decreased movement. Disposition - Disposition OB Disposition: Discharge to home Discharge Date: 03/14/25 Discharge Time: 15:48 I agree with the RN Medical Screening Exam: Yes Physician's MSE Comment: I have neither seen nor examined the patient. Case reviewed; plan agreed upon as documented in EMR&OBIX.: Yes Diagnosis: RELATED CONDITIONS, UNSPECIFIED, THIRD TRIMESTER
== END 2025-03-14 15:48 | disposition home or self-care (01) ==
LOC: FBPOP 14:50
PROVIDERS: ATTEND Obstetrics & Gynecology
DX: O36.8130 Decreased fetal movements, third trimester, not applicable or unspecified (principal); Z3A.32 32 weeks gestation of pregnancy; Z91.041 Radiographic dye allergy status; Z88.8 Allergy status to other drugs, medicaments and biological substances
CPT/HCPCS: 59025; 99213

== ENCOUNTER 2025-04-11 14:30 | Outpatient (CLI) | payer OTHER ==
[2025-04-11 15:10] LABS: Appearance,Urine Clear (Clear); Bilirubin,Urine Negative (Negative); Blood,Urine Negative (Negative); Color,Urine Yellow; Glucose,Urine (UA) Negative (Negative); Ketones,Urine Negative (Negative); Leukocyte Esterase,Urine Negative (Negative); Nitrite,Urine Negative (Negative); Protein,Urine Trace (Negative); Specific Gravity,Urine 1.019 (1.001-1.035); Urobilinogen,Urine <2.0 mg/dL (<2.0)
[2025-04-11 16:06] VITALS: BP 131/86; PULSE 93; RESP 18; TEMP 97.8
--- NOTE | 2025-04-29 11:29 | P.MSEPDOC ---
Presenting Problems - Arrival Data Date of Arrival on Unit: 04/11/25 Time of Arrival on Unit: 14:30 Mode of Transport: Ambulatory - Complaint OB-Reason for Admission/Chief Complaint: Pain Comment: hip and pelvic pressure. nausea, diarrhea Medical History - Information : 1 Para: 0 Term: 0 : 0 Abortions: Spontaneous or Elective: 0 Number of Living Children: 0 - Gestational Age Gestational Age by MONROE (wks/days): 36 Weeks and 6 Days Review of Systems - Review of Systems Constitutional: No problems Breast: No problems ENT: No problems Cardiovascular: No problems Respiratory: No problems Gastrointestinal: Diarrhea Genitourinary: No problems Musculoskeletal: No problems Neurological: No problems Skin: No problems Vital Signs - Temperature Temperature: 97.8 F Temperature Source: Temporal Artery Scan - Pulse Right Sitting Brachial Pulse Rate: 93 Pulse Assessment Method: Automatic Cuff - Respirations Respiratory Rate: 18 Oxygen Delivery Method: Room Air O2 Sat by Pulse Oximetry: 99 - Blood Pressure Right Arm Sitting Blood Pressure: 131/86 Blood Pressure Mean: 101 Blood Pressure Source: Automatic Cuff Medical Screen Scoring - Cervical Exam Dilation (cm): 1 Effacement (%): 50 Station: -3 - Uterine Contractions Intensity: Mild Resting: Soft to palpation - Assessment - Baby A Baseline FHR: 120 Heart Rate - NICHD Category: Category I (Normal) NST: Reactive Physician Notification - Physician Notified Physician Notified Date: 04/11/25 Physician Notified Time: 16:00 Physician: Gregorio Brandt Order Received: Yes (dc home) Maternal Triage Index - Maternal Triage Index Presenting for scheduled procedure w/no complaint: No - Stat/Priority 1 Stat Priority 1: No - Urgent/Priority 2 Urgent Priority 2: No - Prompt/Priority 3 Prompt Priority 3: No - Non-Urgent/Priority 4 Non-Urgent Priority 4: Yes Criteria Met for Priority 4: UA wnl, no cervical change Disposition - Disposition OB Disposition: Discharge to home, Written follow up instructions reviewed Discharge Date: 04/11/25 Discharge Time: 16:05 I agree with the RN Medical Screening Exam: Yes Physician's MSE Comment: I have neither seen nor examined the patient. Case reviewed; plan agreed upon as documented in EMR&OBIX.: Yes Diagnosis: RELATED CONDITIONS, UNSPECIFIED, THIRD TRIMESTER
== END 2025-04-11 16:06 | disposition home or self-care (01) ==
LOC: FBPOP 14:30
PROVIDERS: ATTEND Obstetrics & Gynecology
DX: O26.893 Other specified pregnancy related conditions, third trimester (principal); R52 Pain, unspecified; Z3A.36 36 weeks gestation of pregnancy; Z88.8 Allergy status to other drugs, medicaments and biological substances; Z91.041 Radiographic dye allergy status
CPT/HCPCS: 59025; 81003; 99213

== ENCOUNTER 2025-04-13 23:44 | Inpatient (IN) | payer OTHER ==
[2025-04-13] MEDS ORDERED: CARBOPROST TROMETHAMINE 250 MCG/ML 1 ML AMP IM PRN (23:57)
[2025-04-13] MEDS ORDERED: miSOPROStoL 200 MCG TAB PO PRN (23:57)
[2025-04-13] MEDS ORDERED: TERBUTALINE 1 MG/ML VIAL SQ PRN (23:57)
[2025-04-13] MEDS ORDERED: miSOPROStoL 200 MCG TAB RECTAL PRN (23:57)
[2025-04-13] MEDS ORDERED: LIDOCAINE 0.5% (PF) 5 MG/ML (50 ML SDV) SQ PRN (23:57)
[2025-04-13] MEDS ORDERED: TRANEXAMIC 1,000 MG/100ML-NACL 1,000 MG in EMPTY BAG 1 BAG IV PRN (23:57)
[2025-04-13] MEDS ORDERED: METHYLERGONOVINE 0.2 MG/ML 1 ML AMP IM PRN (23:57)
[2025-04-13] MEDS ORDERED: OXYTOCIN 10 UNIT/ML 1 ML VIAL IM PRN (23:57)
[2025-04-14] MEDS: LACTATED RINGERS 1,000 ML IV SCH (00:56)
[2025-04-14 01:33] LABS: Basophils # (A) 0.01 10*3/uL (0.00-0.10); Basophils % (A) 0.1 %; Eosinophils # (A) 0.06 10*3/uL (0.04-0.35); Eosinophils % (A) 0.7 %; HCT 33.3 % (37.2-46.3); HGB 11.8 g/dL (12.0-15.0); Immature Platelet Fraction 7.1 % (1.1-6.1); MCH 33.2 pg (27.0-32.0); MCHC 35.4 g/dL (32.0-37.0); MCV 93.8 fL (80.0-97.0); Mean Platelet Volume 11.5 fL (9.5-12.2); Monocytes # (A) 0.71 10*3/uL (0.20-1.00); Monocytes % (A) 8.7 %; Neutrophils % (A) 62.8 %; Platelet Count 126 10*3/uL (140-440); RBC 3.55 10*6/uL (4.10-5.20); RDW 11.9 % (11.5-14.5); WBC 8.14 10*3/uL (4.50-10.00)
[2025-04-14] MEDS: OXYTOCIN 30 UNITS/500 ML NS 30 UNIT in SALINE 1 500ML.BAG IV SCH (02:00)
[2025-04-14] MEDS ORDERED: fentaNYL (PF) 50 MCG/ML 5 ML AMP ONE (06:10)
[2025-04-14] MEDS ORDERED: SODIUM CHLORIDE 0.9% 250 ML BAG ONE (06:10)
[2025-04-14] MEDS ORDERED: ROPIVACAINE 5 MG/ML 30 ML VIAL ONE (06:10)
[2025-04-14] MEDS: ONDANSETRON 4 MG/2 ML VIAL IVP PRN (07:23)
--- NOTE | 2025-04-14 08:14 | P.HPOB ---
History of Present Illness H&P Date: 04/14/25 Chief Complaint: rupture Patient is a 24-year-old female at 372/7 weeks presenting for spontaneous rupture membranes around 2300 on 04/13/2025. MONROE 05/03/2025 based off LMP confirmed by first trimester ultrasound. She has received routine care. has been uncomplicated. She reports good movement. Denies fever/chills, headache, visual changes, chest pain, dyspnea, vaginal bleeding, leakage of fluid. Pertinent labs: Blood type O+, antibody screen negative, GBS negative, rubella immune, RPR nonreactive, HepBsAg negative, Hep C nonreactive, HIV negative, gonorrhea negative, chlamydia negative, 1-hour GTT WNL Review of Systems ROS reviewed. Pertinent positives and negatives discussed above, a complete review of systems was performed and all the other systems were negative. Past Medical History Past Medical History: Asthma Additional Past Medical History / Comment(s): endometriosis, ovarian cysts. History of Any Multi-Drug Resistant Organisms: None Reported Past Surgical History: No Surgical Hx Reported Additional Past Surgical History / Comment(s): Left hand surgery. Past Anesthesia/Blood Transfusion Reactions: Motion Sickness, Postoperative Nausea & Vomiting (PONV) Past Psychological History: ADD/ADHD, Anxiety Smoking Status: Never smoker Past Alcohol Use History: None Reported Past Drug Use History: None Reported - Past Family History Mother Family Medical History: Cancer Additional Family Medical History / Comment(s): Cervical cancer. Medications and Allergies Home Medications Medication Instructions Recorded Confirmed Type Ascorbic Acid [Vitamin C] 500 mg PO DAILY 02/03/25 04/13/25 History Ferrous Sulfate [Iron] 45 mg PO QID 02/03/25 04/13/25 History Vit No.179/Iron/Folic 1 each PO DAILY 02/03/25 04/13/25 History [ Tablet] Allergies Allergy/AdvReac Type Severity Reaction Status Date / Time iodine Allergy Rash/Hives Verified 04/13/25 23:50 prednisone Allergy Rash/Hives Verified 04/13/25 23:50 Exam Intake and Output 04/13/25 04/14/25 04/14/25 22:59 06:59 14:59 Other: # Voids 3 Weight 66.224 kg Vital signs are stable. General: No acute distress. Alert and oriented. Lungs: Nonlabored breathing. Abdomen: Gravid and appropriate for gestational age. Cervical exam: /-2 per RN, SROM, clear fluid. Extremities: Symmetric movement. Category 1 heart tones. Results Result Diagrams: 04/14/25 00:58 Abnormal Lab Results - Last 24 Hours (Table) 04/14/25 Range/Units 00:58 RBC 3.55 L (4.10-5.20) 10*6/uL Hgb 11.8 L (12.0-15.0) g/dL Hct 33.3 L (37.2-46.3) % MCH 33.2 H (27.0-32.0) pg Plt Count 126 L (140-440) 10*3/uL Immature Gran # 0.06 H (0.00-0.04) 10*3/uL Immature Plt Fraction 7.1 H (1.1-6.1) % Assessment and Plan Assessment: Patient is a 24-year-old female at 372/7 weeks presenting for spontaneous rupture of membranes. Plan: Admit to FBP Clear liquid diet Analgesia with epidural at patient's request Anticipate spontaneous vaginal delivery
[2025-04-14] MEDS ORDERED: diphenhydrAMINE 50 MG/ML 1 ML VIAL IVP PRN ×2 (14:12)
[2025-04-14] MEDS ORDERED: LANOLIN CREAM 1 GM TUBE TOPICAL PRN (14:12)
[2025-04-14] MEDS ORDERED: ZOLPIDEM 5 MG TAB PO PRN (14:12)
[2025-04-14] MEDS ORDERED: diphenhydrAMINE 25 MG CAP PO PRN (14:12)
[2025-04-14] MEDS ORDERED: SIMETHICONE 80 MG CHEWABLE PO PRN (14:12)
[2025-04-14] MEDS ORDERED: diphenhydrAMINE 50 MG CAP PO PRN (14:12)
[2025-04-14] MEDS ORDERED: HYDROCORTISONE 2.5% RECTAL CREAM 30 GM TUBE RECTAL PRN (14:12)
[2025-04-14] MEDS ORDERED: OXYTOCIN 30 UNITS/500 ML NS 30 UNIT in SALINE 1 500ML.BAG IV SCH (14:15)
--- NOTE | 2025-04-14 14:18 | P.PROBDLV ---
Vaginal Delivery Note - . Vaginal Delivery Note: The patient is a 24-year-old 1 para 0 admitted at 37-2/7 weeks by good dating parameters. She presents in early active labor with all signs reassuring after spontaneous rupture of membranes with clear fluid, category 1 heart rate tracing. Her has been been entirely uncomplicated and group B strep status is negative. On labor and delivery, she was making relatively slow progress and had Pitocin augmentation started. She had an epidural catheter placed around the onset of the active phase of labor. She progressed steadily through the active phase to complete and pushed over the course of just under 2 hours to a normal spontaneous vaginal delivery of a viable 6 pound 6 ounce baby boy with Apgars of 8 at 1 minute and 9 at 5 minutes delivered in the left occiput anterior position. The placenta was delivered spontaneously, intact, and grossly normal with a grossly normal three-vessel cord inserted approximately 3 to 4 cm from the margin of the placental disc. Single perineal skin split at 5:00 which was not repaired as it was not bleeding. There were no other lacerations of the perineum, vagina, or cervix. Estimated blood loss for the case was approximately 100 mL. There were no complications. All sponge, instrument, and needle counts were correct. Both mother and infant are resting comfortably in recovery.
[2025-04-14] MEDS: BENZOCAINE/MENTHOL SPRAY 1 GM/SPRAY AEROSOL TOPICAL PRN (14:34)
[2025-04-14] MEDS: ACETAMINOPHEN TAB 500 MG TAB PO SCH (18:41)
[2025-04-14] MEDS: IBUPROFEN 800 MG TAB PO SCH (20:13)
[2025-04-14] MEDS: SENNOSIDES-DOCUSATE SODIUM 1 EACH TAB PO SCH (20:18)
[2025-04-15 06:18] LABS: Basophils # (A) 0.02 10*3/uL (0.00-0.10); Basophils % (A) 0.2 %; Eosinophils # (A) 0.04 10*3/uL (0.04-0.35); Eosinophils % (A) 0.4 %; HCT 32.8 % (37.2-46.3); HGB 11.4 g/dL (12.0-15.0); Immature Platelet Fraction 6.2 % (1.1-6.1); Lymphocytes # (A) 2.18 10*3/uL (0.90-5.00); Lymphocytes % (A) 19.5 %; MCH 33.7 pg (27.0-32.0); MCHC 34.8 g/dL (32.0-37.0); Mean Platelet Volume 11.2 fL (9.5-12.2); Monocytes # (A) 0.79 10*3/uL (0.20-1.00); Monocytes % (A) 7.1 %; Neutrophils # (A) 8.09 10*3/uL (1.80-7.70); Neutrophils % (A) 72.4 %; Platelet Count 112 10*3/uL (140-440); RBC 3.38 10*6/uL (4.10-5.20); RDW 12.1 % (11.5-14.5); WBC 11.17 10*3/uL (4.50-10.00)
--- NOTE | 2025-04-15 07:34 | P.DS ---
Providers Date of admission: 04/14/25 00:13 Expected date of discharge: 04/15/25 Attending physician: Gregorio Brandt Primary care physician: Stated None - Discharge Diagnosis(es) (1) Active labor at term Current Visit: Yes Status: Acute (2) Normal spontaneous vaginal delivery Current Visit: Yes Status: Acute (3) Spontaneous rupture of amniotic membranes Current Visit: Yes Status: Acute Hospital Course: Patient is a 24-year-old admitted at 37-2/7 weeks for spontaneous rupture of membranes. has been uncomplicated. Labor progressed without complication. Group B strep was negative. Patient was completely dilated at 1208 and was delivered at 1355. A healthy male was delivered with Apgars 8 and 9 and a birthweight of 2895 g (6 pounds 6 ounces). The placenta was delivered intact and EBL 100 mL. There was a single perineal skin split at the 5 o'clock position that was not repaired as it was not bleeding. Uterus involution appropriate. course was unremarkable. Patient was afebrile, hemodynamically stable, ambulating independently, and voiding without difficulty. Lochia was apppropriate. Patient is . Pain was well- controlled with Tylenol and Motrin. remained stable and is being discharged with the patient. Physical examination: Vital signs reviewed General: Nontoxic, no distress, appears stated age, well-appearing Lungs: Symmetric chest wall expansion, nonlabored breathing on room air Extremities: Normal, without pitting edema Uterus: Normal, firm, below umbilicus Attending statement: After discussion with the patient and secondary to some difficulty with nursing, the patient has chosen to remain in the hospital for 1 more night to allow for assistance with breast-feeding. The above is otherwise accurate and remains for discharge summary. Discharge home will occur tomorrow. Patient Condition at Discharge: Good Plan - Discharge Summary New Discharge Prescriptions: No Action Ferrous Sulfate [Iron] 45 mg PO QID Vit No.179/Iron/Folic [ Tablet] 1 each PO DAILY Ascorbic Acid [Vitamin C] 500 mg PO DAILY Discharge Medication List Ascorbic Acid [Vitamin C] 500 mg PO DAILY 02/03/25 [History] Ferrous Sulfate [Iron] 45 mg PO QID 02/03/25 [History] Vit No.179/Iron/Folic [ Tablet] 1 each PO DAILY 04/10/25 [History] Follow up Appointment(s)/Referral(s): Gregorio Brandt MD [STAFF PHYSICIAN] - 06/01/25 1:00 pm Patient Instructions/Handouts: Vaginal Delivery (DC) Activity/Diet/Wound Care/Special Instructions: Please avoid intercourse, tub baths, and swimming in pools/lakes/oceans/hot tubs for 6 weeks. Your pain can be treated with ibuprofen and acetaminophen. You can take up to 400-600 mg of ibuprofen (Advil, Motrin) 3 times daily (every 8 hours). Do not combine either with ketorolac (Toradol), meloxicam (Mobic), or indomethacin (Tivorbex). Some people can develop stomach discomfort with higher doses of either ibuprofen or naproxen, if this develops decrease your dose or stop taking it. If you need to take this dose daily for more than a week, please schedule an appointment for re-evaluation with your PCP/OBGYN. Please take these medications with food. You can take up to 1000 mg of acetaminophen (Tylenol) every 6 hours. Be careful as this is included in some medicines like Nyquil, [place], Percocet, Vicodin, STANBACK, Goody's Powders, and Excedrin. Discharge Disposition: HOME SELF-CARE
[2025-04-16 08:43] VITALS: BP 122/82; PULSE 80; RESP 15; TEMP 98.2
== END 2025-04-16 14:30 | disposition home or self-care (01) | DRG 807 ==
LOC: FBPOP 23:44 → 4FBP 04-14 00:13
PROVIDERS: ADMIT Obstetrics & Gynecology; ATTEND Obstetrics & Gynecology
PROC: 10E0XZZ Delivery of Products of Conception, External Approach (ICD-10-PCS; principal; 2025-04-14)
DX: O80 Encounter for full-term uncomplicated delivery (principal); Z37.0 Single live birth; Z3A.37 37 weeks gestation of pregnancy
CPT/HCPCS: 59025; 84112; 85025; 86850; 86900; 86901; 99213